=== PATIENT | male | born 1950 | race Caucasian/White ===

== ENCOUNTER 2023-03-15 11:12 | Outpatient (CLI) | payer MEDICARE, OTHER ==
--- NOTE | 2023-03-15 11:39 | XRAY Report ---
PROCEDURE: Abdomen 1 View X-Ray INDICATIONS: PERSONAL HISTORY OF URINARY CALCULI, TOBACCO ABUSE TECHNIQUE: One view of the abdomen acquired. COMPARISON: None. FINDINGS: Surgical changes and devices: None. Bowel: Bowel gas pattern is normal. Soft tissues: Calcifications over the bilateral renal shadows measuring up to 5 mm. Visualized solid organ contours appear normal in size. Atherosclerotic vascular calcifications. Bones: No suspicious bony lesions. IMPRESSION: Calcifications over the bilateral renal shadows measuring 5 mm. No suspicious calcifications are seen in the pelvis or regions of the ureters. Reviewed by: Isaak Shaw MD on 03/15/2023 11:38 AM PDT Approved by: Isaak Shaw MD on 03/15/2023 11:38 AM PDT Station ID: [id number]
--- NOTE | 2023-03-15 11:40 | XRAY Report ---
PROCEDURE: Chest 2 View X-Ray INDICATIONS: PERSONAL HISTORY OF URINARY CALCULI, TOBACCO ABUSE TECHNIQUE: 2 views of the chest were acquired. COMPARISON: None. FINDINGS: Surgical changes and devices: None. Lungs and pleura: No pleural effusions or pneumothorax. Hyperexpanded lungs with flattening of the diaphragms, consistent with COPD. Lungs are clear. Mediastinum: Mediastinal contours appear normal. Atherosclerotic vascular calcifications of the thor acic aorta. Heart size is normal. Bones and chest wall: No suspicious bony lesions. Degenerative changes of the spine. Overlying soft tissues appear unremarkable. IMPRESSION: No acute cardiopulmonary process. Findings consistent with COPD. Reviewed by: Isaak Shaw MD on 03/15/2023 11:39 AM PDT Approved by: Isaak Shaw MD on 03/15/2023 11:39 AM PDT Station ID: [id number]
[2023-03-15 14:33] LABS: BASOPHILS % (AUTO) 0.4 %; EOSINOPHILS % (AUTO) 0.3 %; HCT - HEMATOCRIT 49.9 % (42.0-52.0); HGB - HEMOGLOBIN 15.9 g/dL (14.0-18.0); LYMPHOCYTES # (AUTO) 1.8 10^3/uL (1.5-3.5); LYMPHOCYTES % (AUTO) 23.3 %; MEAN CORPUSCULAR HEMOGLOBIN 30.8 pg (27.0-31.0); MEAN CORPUSCULAR HGB CONC 31.9 g/dL (32.0-36.0); MEAN CORPUSCULAR VOLUME 96.7 fL (80.0-94.0); MEAN PLATELET VOLUME 9.1 fL (7.4-11.4); MONOCYTES # (AUTO) 0.6 10^3/uL (0.0-1.0); MONOCYTES % (AUTO) 8.5 %; NEUTROPHILS # (AUTO) 5.1 10^3/uL (1.5-6.6); NEUTROPHILS % (AUTO) 67.4 %; PLT - PLATELET COUNT 293 10^3/uL (130-450); RED BLOOD COUNT 5.16 10^6/uL (4.70-6.10); RED CELL DISTRIBUTION WIDTH 14.6 % (12.0-15.0); WHITE BLOOD COUNT 7.5 x10^3/uL (4.8-10.8)
[2023-03-15 15:08] LABS: THYROID STIMULATING HORMONE 1.85 uIU/mL (0.34-5.60)
[2023-03-15 15:26] LABS: ALBUMIN 4.5 g/dL (3.2-5.5); ALBUMIN/GLOBULIN RATIO 1.8 (1.0-2.2); ALKALINE PHOSPHATASE 72 IU/L (42-121); ALT ALANINE AMINOTRANSFERASE 12 IU/L (10-60); AST ASPARTATE AMINOTRANSFERASE 16 IU/L (10-42); BILIRUBIN,TOTAL 0.6 mg/dL (0.2-1.0); BUN - BLOOD UREA NITROGEN 12 mg/dL (6-20); CALCIUM 9.9 mg/dL (8.5-10.3); CARBON DIOXIDE - CO2 33 mmol/L (21-32); CHLORIDE 105 mmol/L (101-111); CHOL/HDL RATIO 3.6 (<5.0); CHOLESTEROL 215 mg/dL; CREATININE 0.5 mg/dL (0.6-1.3); CRP - C-REACTIVE PROTEIN 0.6 mg/dL (<0.5); GFR - MDRD 163 (>89); GLUCOSE 102 mg/dL (74-104); HDL CHOLESTEROL 60 mg/dL; LDL CHOLESTEROL,CALCULATED 132 mg/dL; LDL/HDL RATIO 2.2 (<3.6); POTASSIUM 3.8 mmol/L (3.5-4.5); SODIUM 142 mmol/L (135-145); TRIGLYCERIDES 113 mg/dL (48-352); VLDL CHOLESTEROL 23 mg/dL
[2023-03-15 20:26] LABS: ESTIMATED AVERAGE GLUCOSE 123 mg/dL (70-100); HEMOGLOBIN A1c% 5.9 % (4.27-6.07)
== END 2023-03-15 11:13 | disposition home or self-care (01) ==
LOC: DI.S 11:12
PROVIDERS: ATTEND Internal Medicine
DX: N20.0 Calculus of kidney (principal); Z87.442 Personal history of urinary calculi; F17.200 Nicotine dependence, unspecified, uncomplicated; M54.50 Low back pain, unspecified; R64 Cachexia; R39.15 Urgency of urination
CPT/HCPCS: 36415; 80053; 80061; 83036; 83721; 84153; 84443; 85025; 86140

== ENCOUNTER 2023-04-18 09:29 | Outpatient (CLI) | payer MEDICARE, OTHER ==
[2023-04-18 15:13] LABS: BASOPHILS % (AUTO) 0.3 %; EOSINOPHILS % (AUTO) 0.6 %; HCT - HEMATOCRIT 46.7 % (42.0-52.0); LYMPHOCYTES % (AUTO) 29.8 %; MEAN CORPUSCULAR HEMOGLOBIN 30.8 pg (27.0-31.0); MEAN CORPUSCULAR HGB CONC 32.1 g/dL (32.0-36.0); MEAN CORPUSCULAR VOLUME 95.9 fL (80.0-94.0); MEAN PLATELET VOLUME 9.3 fL (7.4-11.4); MONOCYTES # (AUTO) 0.6 10^3/uL (0.0-1.0); MONOCYTES % (AUTO) 8.4 %; NEUTROPHILS % (AUTO) 60.7 %; PLT - PLATELET COUNT 274 10^3/uL (130-450); RED BLOOD COUNT 4.87 10^6/uL (4.70-6.10); RED CELL DISTRIBUTION WIDTH 14.6 % (12.0-15.0); WHITE BLOOD COUNT 6.6 x10^3/uL (4.8-10.8)
[2023-04-18 16:01] LABS: ALBUMIN 4.5 g/dL (3.2-5.5); ALKALINE PHOSPHATASE 60 IU/L (42-121); ALT ALANINE AMINOTRANSFERASE 10 IU/L (10-60); AST ASPARTATE AMINOTRANSFERASE 14 IU/L (10-42); BILIRUBIN,TOTAL 0.7 mg/dL (0.2-1.0); BUN - BLOOD UREA NITROGEN 13 mg/dL (6-20); CALCIUM 9.6 mg/dL (8.5-10.3); CARBON DIOXIDE - CO2 32 mmol/L (21-32); CHLORIDE 105 mmol/L (101-111); CHOL/HDL RATIO 4.4 (<5.0); CHOLESTEROL 221 mg/dL; CREATININE 0.5 mg/dL (0.6-1.3); CRP - C-REACTIVE PROTEIN < 0.5 mg/dL (<0.5); GFR - MDRD 163 (>89); GLUCOSE 101 mg/dL (74-104); HDL CHOLESTEROL 50 mg/dL; LDL CHOLESTEROL,CALCULATED 149 mg/dL; POTASSIUM 3.7 mmol/L (3.5-4.5); SODIUM 142 mmol/L (135-145); TOTAL PROTEIN 6.7 g/dL (6.4-8.9); TRIGLYCERIDES 110 mg/dL (48-352); VLDL CHOLESTEROL 22 mg/dL
[2023-04-18 16:07] LABS: THYROID STIMULATING HORMONE 2.64 uIU/mL (0.34-5.60)
[2023-04-18 20:40] LABS: ESTIMATED AVERAGE GLUCOSE 123 mg/dL (70-100); HEMOGLOBIN A1c% 5.9 % (4.27-6.07)
== END 2023-04-18 09:30 | disposition home or self-care (01) ==
LOC: LAB.S 09:29
PROVIDERS: ATTEND Internal Medicine
DX: M54.50 Low back pain, unspecified (principal); R64 Cachexia; R39.15 Urgency of urination; Z72.0 Tobacco use
CPT/HCPCS: 36415; 80053; 80061; 83036; 83721; 84153; 84443; 85025; 86140

== ENCOUNTER 2023-04-25 13:45 | Outpatient (CLI) | payer MEDICARE, OTHER ==
[2023-04-25] MEDS ORDERED: iohexoL-300 100 ML VIAL IVP ONE (14:27)
--- NOTE | 2023-04-25 15:59 | CT Report ---
PROCEDURE: IVP INDICATIONS: HEMTURIA CONTRAST: 140mL Omni 300 TECHNIQUE: After the administration of intravenous contrast, 5 mm thick sections acquired from the diaphragms to the symphysis. 5 mm thick coronal and sagittal reformats were acquired. For radiation dose reducti on, the following was used: automated exposure control, adjustment of mA and/or kV according to veronica ent size. COMPARISON: None. FINDINGS: Image quality: Excellent. Urinary system: Both kidneys are normal in size. Large burden of bilateral nonobstructing nephrolith iasis, left greater the right. The largest stone measures 5 mm on the right and 4 mm on the left. No solid masses or complex cysts which require follow up. The opacified renal calyces and ureters appear normal, without filling defect. Bladder wall thickness is normal, accounting for underdistention. N o calcified bladder stones. No filling defect within the opacified bladder. OTHER Lung bases and heart: Unremarkable. Liver: No solid mass. Gallbladder and biliary tree: No radiopaque stones or wall thickening. No biliary dilation. Spleen: No splenomegaly. Pancreas: No pancreatic ductal dilation. Adrenals: No adrenal nodule. Bowel and peritoneum: No bowel distension. No pathologic free fluid. Abdominal Lymph nodes: No central or retroperitoneal adenopathy. Vessels: Unremarkable. Reproductive organs: Unremarkable. Pelvic Lymph nodes: Unremarkable. Bones: No aggressive osseous abnormality. Osteoporosis by Hounsfield units criteria. Mild sclerosis o f the left sacral ala. Other: None. IMPRESSION: Large burden of bilateral nonobstructing nephrolithiasis. No hydronephrosis or obstruction. Osteoporosis by Hounsfield units criteria. Mild sclerosis of the left sacral ala, which may indicate sacral insufficiency fracture. Reviewed by: Troy Albarran on 04/25/2023 3:58 PM PDT Approved by: Troy Albarran on 04/25/2023 3:58 PM PDT Station ID: [id number]
== END 2023-04-25 13:46 | disposition home or self-care (01) ==
LOC: DI 13:45
PROVIDERS: ATTEND Urology
DX: R31.9 Hematuria, unspecified (principal); N20.0 Calculus of kidney; M81.0 Age-related osteoporosis without current pathological fracture; M53.3 Sacrococcygeal disorders, not elsewhere classified
CPT/HCPCS: 74178; Q9967

== ENCOUNTER 2023-06-04 08:02 | Day surgery (SDC) | payer MEDICARE, OTHER ==
[~2023-06-04 08:02] MED LIST: ceFAZolin 2 GM VIAL ONE
[2023-06-04] MEDS ORDERED: LACTATED RINGERS 1,000 ML IV ONE ×2 (08:20→11:00)
[2023-06-04] MEDS ORDERED: LIDOCAINE-PF 2% 10 ML AMP SUBQ ONE (08:47)
[2023-06-04] MEDS ORDERED: PROPOFOL 200 MG/20 ML VIAL IVP ONE (08:47)
[2023-06-04] MEDS ORDERED: fentaNYL 100 MCG/2 ML VIAL ONE (08:47)
[2023-06-04] MEDS ORDERED: MIDAZOLAM 2 MG/2 ML VIAL ONE (08:47)
--- NOTE | 2023-06-04 09:29 | ANESTHESIA ---
Pre-Anesthesia VS, & Labs - Diagnosis bilateral kidney stones - Procedure steven ESWL Vital Signs: Temp Pulse Resp BP Pulse Ox O2 Flow Rate 36.8 C 62 12 127/77 99 06/04/23 08:18 06/04/23 08:18 06/04/23 08:18 06/04/23 08:18 06/04/23 08:18 Height: 5 ft 8 in Weight (kg): 48.8 kg Body Mass Index: 16.3 BMI Classification: Underweight - NPO >8 hours Home Medications and Allergies Home Medications: Ambulatory Orders Acetaminophen [Tylenol] 650 mg PO Q6H PRN 05/28/23 Solifenacin Succinate 5 mg PO DAILY 05/28/23 Tamsulosin [Flomax] 0.4 mg PO DAILY 05/28/23 Acetaminophen [Tylenol] 650 mg PO Q6H PRN 05/28/23 Solifenacin Succinate 5 mg PO DAILY 05/28/23 Tamsulosin [Flomax] 0.4 mg PO DAILY 05/28/23 Allergies/Adverse Reactions: Allergies Allergy/AdvReac Type Severity Reaction Status Date / Time egg Allergy Rash Verified 05/28/23 12:49 Anes History & Medical History - Anesthetic History Anesthesia Complications: reports: No previous complications - Medical History Cardiovascular: reports: None Pulmonary: reports: None Gastrointestinal: reports: Colon polyps Urinary: reports: Kidney stones Neuro: reports: None Musculoskeletal: reports: Osteoarthritis Endocrine/Autoimmune: reports: None Skin: reports: None Smoking Status: Current every day smoker (1/2 PACK PER DAY) Psychosocial: reports: Cannabis (2X per week) History of Cancer?: No - Surgical History General: reports: Colonoscopy Eyes Ears Nose Throat (EENT): reports: Cataracts Orthopedic: reports: Arthroscopic surgery Exam General: Alert, Oriented x3, Cooperative, No acute distress Dental: Dentures full Upper, Dentures full Lower Mouth Openin Fingerbreadth Neck Mobility: Normal Mallampati classification: I Thyromental Distance: 4-6 cm Mental/Cognitive Status: Alert/Oriented X3, Normal for patient Plan Anesthesia Type: General Consent for Procedure(s) Verified and Reviewed: Yes Code Status: Attempt Resuscitation ASA classification: 2-Mild systemic disease Is this case an emergency?: No
[2023-06-04] MEDS ORDERED: ATROPINE ABBOJECT 1 MG/10 ML SYRINGE IVP PRN (09:30)
[2023-06-04] MEDS ORDERED: fentaNYL 100 MCG/2 ML VIAL IVP PRN (09:30)
[2023-06-04] MEDS ORDERED: ONDANSETRON 4 MG/2 ML VIAL IVP PRN ×2 (09:30→10:56)
[2023-06-04] MEDS ORDERED: MORPHINE 2 MG/ML CARPUJECT IVP PRN (09:30)
[2023-06-04] MEDS ORDERED: NALOXONE 0.4 MG/ML VIAL IVP PRN (09:30)
[2023-06-04] MEDS ORDERED: HYDROmorphone 0.5 MG/0.5 ML SYRINGE IVP PRN (09:30)
[2023-06-04] MEDS ORDERED: LACTATED RINGERS 1,000 ML IV SCH (10:00)
[2023-06-04] MEDS ORDERED: GLYCOPYRROLATE 1 MG/5 ML VIAL ONE (10:03)
[2023-06-04] MEDS ORDERED: DEXAMETHASONE 4 MG/ML VIAL ONE (10:29)
[2023-06-04] MEDS ORDERED: ONDANSETRON 4 MG/2 ML VIAL ONE (10:29)
[2023-06-04] MEDS ORDERED: HYDROcod/ACETAM 5/325 MG TABLET PO PRN (10:56)
--- NOTE | 2023-06-04 11:01 | Discharge Plan ---
Discharge Plan Problem Reviewed?: Yes Disposition: Home, Self Care Condition: Good Prescriptions: Docusate Sodium 100Mg Capsule [Colace 100Mg Capsule] 100 mg PO DAILY #7 cap HYDROcod/ACETAM 5/325 [[place] 5/325] 1 tab PO Q4H PRN #10 tablet PRN Reason: Pain Diet: Regular Activity Restrictions: No Restrictions Shower Restrictions: No Driving Restrictions: No Instruction Topics: Lithotripsy Shock Wave Additional Instructions or Follow Up instructions: You will be contacted for follow-up in [address] Nance No Smoking: If you smoke, Please STOP! Call for help. Follow-up with: Felix Nance MD [Provider Admit Priv/Credential] -
--- NOTE | 2023-06-04 11:05 | OPERATIVE REPORT ---
Operative Report - General Procedure Date: 06/04/23 Planned Procedure: Bilateral Extracorporeal Shock Wave Lithotripsy Pre-Op Diagnosis: Bilateral kidney stones Procedure Performed: Bilateral Extracorporeal Shock Wave Lithotripsy Post Op Diagnosis: Bilateral kidney stones - Procedure Note Primary Surgeon: Goyo Anesthesia Provider: BOB Gutierrez Anesthesia Technique: General LMA Indications: Bilateral kidney stones Findings: Right upper pole 5 mm stone good dissolution Left lower pole 5 mm stone good dissolution Complications: none - Other Other Information/Narrative: After informed consent was obtained the patient was brought to the OR and laid in the supine position. At that point the patient was anesthetized per anesthesia protocols and prepped in the usual fashion. A formal timeout was performed reconfirming the patient, procedure and laterality. The shockwave lithotripter was placed against the patient's right flank and fluoroscopy was used to identify the stone in his kidney. We could see a 5 mm upper pole stone on the right side. The shockwaves were then started with a rate of 1 Hz advancing to 1.5 Hz after 500 shocks. After 1800 shocks there was noted to have good dissolution of the stone. At that point the lithotripter was then moved to the other side. It was placed against his left flank. Using fluoroscopy we could see another 5 mm stone this time in the left lower pole. Similarly shockwaves were sent started a rate of 1 Hz advancing to 1.5 Hz after 500 shocks. A total of 1100 shocks were delivered, there was good dissolution of the stone. This concluded the procedure. The patient was reversed of anesthesia and brought to the PACU without further incident He will follow-up in 6 weeks time in the office with Dr. Nance
[2023-06-04 12:00] VITALS: BP 144/65; O2SAT 96
--- NOTE | 2023-06-04 12:03 | ANESTHESIA POST OP EVALUATION ---
Anesthesia Post Eval - Post Anesthesia Eval Vitals: Last Vital Signs Temp 36.1 C L 06/04/23 11:50 Pulse 65 06/04/23 11:50 Resp 16 06/04/23 11:50 BP 144/65 H 06/04/23 11:50 Pulse Ox 96 06/04/23 11:50 O2 Flow Rate CV Function Including HR & BP: Stable Pain Control: Satisfactory Nausea & Vomiting: Negative Mental Status: Baseline Respiratory Status: Airway Patent Hydration Status: Satisfactory Anesthesia Complications: None
== END 2023-06-04 08:03 | disposition home or self-care (01) ==
LOC: SDS 08:02
PROVIDERS: ATTEND Urology
DX: N20.0 Calculus of kidney (principal); N40.1 Benign prostatic hyperplasia with lower urinary tract symptoms; R39.15 Urgency of urination; R63.6 Underweight; Z68.1 Body mass index [BMI] 19.9 or less, adult; F17.210 Nicotine dependence, cigarettes, uncomplicated
CPT/HCPCS: 50590; J7120

== ENCOUNTER 2023-07-04 08:00 | Outpatient (CLI) | payer MEDICARE, OTHER ==
--- NOTE | 2023-07-04 15:50 | XRAY Report ---
PROCEDURE: Abdomen 1 View (KUB) INDICATIONS: KIDNEY STONES TECHNIQUE: 1 view of the abdomen were acquired. COMPARISON: IVP 04/25/2023. FINDINGS: Surgical changes and devices: None. Bowel: No pneumoperitoneum. The bowel gas pattern is normal. Stool load within normal limits. Soft tissues: No masses; visualized solid organ contours appear normal in size. No suspicious abdom inal calcifications. Bilateral calcifications projecting over the kidneys. Largest measures 4 to 5 m m on both sides. Bones: No suspicious bony abnormalities. IMPRESSION: Bilateral nephrolithiasis, similar in extent compared with IVP. Reviewed by: Troy Albarran MD on 07/04/2023 3:49 PM PST Approved by: Troy Albarran MD on 07/04/2023 3:49 PM PST Station ID: [id number]
== END 2023-07-04 23:59 | disposition home or self-care (01) ==
LOC: DI.WOS 08:00
PROVIDERS: ATTEND Urology
DX: N20.0 Calculus of kidney (principal)

== ENCOUNTER 2023-11-21 12:08 | Emergency (ER) | payer MEDICARE, OTHER ==
[2023-11-21 12:48] VITALS: BP 120/73; O2SAT 98
--- NOTE | 2023-11-21 13:47 | ED Physician Documentation ---
History of Present Illness - Stated complaint Stated Complaint: LT LEG PX - Chief complaint Chief Complaint: Ext Problem - Additonal information Additional information: 73-year-old male with history of colon polyps, kidney stones depression, osteoarthritis presents emergency department for left calf/left groin pain. Patient says that he has been having left calf pain now for the last 2 to 3 months he had a urology appointment today and they advised him to come to the emergency department for possible DVT as he is having warrant left thigh swelling and tenderness. He has had no trauma or fall no recent injury to the left calf or left groin he does run a lot and says that he notices the pain gets worse after he runs. No shortness of breath no fevers or chills. PD PAST MEDICAL HISTORY - Past Medical History Past Medical History: Yes Cardiovascular: None Respiratory: None Neuro: None Endocrine/Autoimmune: None GI: Colon polyps : Kidney stones HEENT: Chronic vision loss Psych: Depression Musculoskeletal: Osteoarthritis Derm: None - Past Surgical History Past Surgical History: Yes General: Colonoscopy Ortho: Arthroscopic surgery HEENT: Cataracts - Present Medications Home Medications: Ambulatory Orders Medication Instructions Recorded Confirmed Acetaminophen [Tylenol] 650 mg PO Q6H PRN 05/28/23 05/28/23 - Allergies Allergies/Adverse Reactions: Allergies Allergy/AdvReac Type Severity Reaction Status Date / Time egg Allergy Rash Verified 11/21/23 12:45 - Social History Does the pt smoke?: Yes Smoking Status: Current every day smoker Does the pt drink ETOH?: No Does the pt have substance abuse?: No - Immunizations Immunizations are current?: Yes - POLST Patient has POLST: No PD ED PE NORMAL - Vitals Vital signs reviewed: Yes - General General: Alert and oriented X 3, No acute distress, Well developed/nourished - Extremities Extremities: Other (left thigh larger than right thigh. left calf tenderness with palpation) - Psych Psych: Normal mood Results - Vitals Vitals: Vital Signs - 24 hr 11/21/23 11/21/23 12:37 12:44 Temperature 36.7 C Heart Rate 88 Respiratory 16 16 Rate Blood Pressure 120/73 O2 Saturation 98 Oxygen O2 Source Room air - Rads (name of study) Venous duplex of left lower extremity Relevant Findings:: Final report received, EMP independent interpretation of test, Other (No deep vein thrombosis of the left lower extremity.) PD Medical Decision Making - ED course ED course: 73-year-old male presents emergency department for left calf left thigh pain. Differentials included but are not limited to musculoskeletal strain/sprain, DVT. Venous duplex was complete for further evaluation and there is no DVT of the left lower extremity. Patient would benefit from outpatient arterial study for further evaluation and he was informed of this. He was told to follow-up primary care provider and he says he has an appoint with his primary care provider appointment coming up soon patient is given strict ER return precautions given that he has no chest pain or shortness of breath I do not believe any further workup is indicated at this time. He was offered Tylenol ibuprofen here in the ER he said he would take some at home. All questions answered patient is safe for discharge. Departure - Departure Disposition: 01 Home, Self Care Clinical Impression: Left leg pain Instructions: ED Muscle Pain Leg Cramps Comments: Thank you for trusting us with your care we completed the venous duplex of the left lower extremity we are not seeing any DVT at this point in time but I would suggest you following up with your primary care provider Dr. Ramirez for further evaluation and possible outpatient arterial study as well as some basic labs. Please come back to the emergency department if the pain gets any worse or if you are developing any new symptoms. Forms: PCP List Discharge Date/Time: 11/21/23 15:26
--- NOTE | 2023-11-21 15:09 | Ultrasound Report ---
PROCEDURE: Duplex Ext Veins Left INDICATIONS: left calf pain and swellinf TECHNIQUE: Real-time imaging, as well as color and pulse Doppler interrogation, were performed of the lower extr emity deep veins from the inguinal ligament to the popliteal fossa. Attempted visualization of the ca lf veins was performed. COMPARISON: None. FINDINGS: The deep veins are normally compressible, and free of intraluminal thrombus. Color and pu lse Doppler demonstrate normal phasic intraluminal flow. There is normal augmentation response to di stal compression maneuver. IMPRESSION: No deep venous thrombosis of the left lower extremity. Reviewed by: Musa Landeros MD on 11/21/2023 3:07 PM PDT Approved by: Musa Landeros MD on 11/21/2023 3:07 PM PDT Station ID: [id number]
== END 2023-11-21 15:26 | disposition home or self-care (01) ==
LOC: ED 12:08
DX: M79.662 Pain in left lower leg (principal); M79.652 Pain in left thigh; R10.32 Left lower quadrant pain; F17.200 Nicotine dependence, unspecified, uncomplicated; N20.0 Calculus of kidney
CPT/HCPCS: 99283; 99284

== ENCOUNTER 2023-12-19 08:00 | Outpatient (CLI) | payer MEDICARE, OTHER ==
--- NOTE | 2023-12-19 17:43 | XRAY Report ---
PROCEDURE: Foot 3+V RT INDICATIONS: CALCANEAL SPUR, RIGHT TECHNIQUE: 3 views of the foot were acquired. COMPARISON: None. FINDINGS: Bones: No acute displaced fracture or dislocation. Mild Achilles insertional enthesopathy. Soft tissues: No suspicious calcifications. Nonacute appearing possible sclerotic sesamoid or bone fr agment adjacent to the fifth metatarsal head. IMPRESSION: Mild Achilles insertional enthesopathy. No acute radiographic abnormality. Nonacute appearing possibl e sclerotic sesamoid or bone fragment adjacent to the fifth metatarsal head. If there is high concern for further derangement, consider MRI evaluation. Reviewed by: Ricardo West MD on 12/19/2023 5:41 PM PDT Approved by: Ricardo West MD on 12/19/2023 5:41 PM PDT Station ID: [id number]
--- NOTE | 2023-12-19 17:43 | XRAY Report ---
PROCEDURE: Tib/Fib LT INDICATIONS: PAIN IN LEFT CALF TECHNIQUE: 2 views of the tibia and fibula were acquired. COMPARISON: None. FINDINGS: Bones: No acute displaced fracture or dislocation. Partially seen Achilles spurring at the insertion . Soft tissues: No suspicious calcifications. IMPRESSION: No acute radiographic abnormality. If there is high concern for further derangement, consider MRI bree luation. Reviewed by: Ricardo West MD on 12/19/2023 5:42 PM PDT Approved by: Ricardo West MD on 12/19/2023 5:42 PM PDT Station ID: [id number]
== END 2023-12-19 23:59 | disposition home or self-care (01) ==
LOC: DI.S 08:00
PROVIDERS: ATTEND Emergency Medicine
DX: M79.662 Pain in left lower leg (principal); M77.8 Other enthesopathies, not elsewhere classified

== ENCOUNTER 2024-01-17 13:04 | Outpatient (CLI) | payer MEDICARE, OTHER ==
--- NOTE | 2024-01-17 15:30 | XRAY Report ---
PROCEDURE: Chest 2V INDICATIONS: CONTUSION OF UNSPEC. FRONT WALL OF THORAX TECHNIQUE: 2 views of the chest were acquired. COMPARISON: 03/15/2023 FINDINGS: Surgical changes and devices: None. Lungs and pleura: No pleural effusions or pneumothorax. Lungs are clear. Hyperinflation. Mediastinum: Mediastinal contours appear normal. Heart size is normal. Bones and chest wall: No suspicious bony lesions. Overlying soft tissues appear unremarkable. IMPRESSION: No acute cardiopulmonary process. Reviewed by: Troy Albarran MD on 01/17/2024 2:29 PM AKDT Approved by: Troy Albarran MD on 01/17/2024 2:29 PM AKDT Station ID: [id number]
== END 2024-01-17 13:05 | disposition home or self-care (01) ==
LOC: DI 13:04
PROVIDERS: ATTEND Physician Assistant
DX: S20.219A Contusion of unspecified front wall of thorax, initial encounter (principal)